=== PATIENT | female | born 1950 | race Caucasian/White ===

== ENCOUNTER → 2019-10-24 08:48 | Outpatient (CLI) | payer MEDICARE, SELFPAY ==
[2019-10-24 10:17] LABS: Absolute Lymphocyte Count 2.72 X10^3/uL (0.83-4.51); Absolute Neutrophil Count 4.9 X10^3/uL (2.0-7.7); Basophil# 0.03 X10^3/uL; Basophil% 0.4 % (0-1); Eosinophil# 0.08 X10^3/uL; Hematocrit 36.8 % (37-47); Hemoglobin 11.7 g/dL (12.0-15.0); Lymphocyte # 2.72 X10^3/ul (4.0); Lymphocyte % 32.9 % (19-41); Mean Corp Hgb Conc 31.8 g/dL (32-36); Mean Corpuscular Hgb 29.8 pg (27.0-32.0); Mean Corpuscular Volume 93.9 fL (81-99); Monocyte# 0.53 X10^3/uL; Monocyte% 6.4 % (0-10); NRBC Flagged by Analyzer 0 % (0-5); Neutrophil # 4.87 X10^3/uL (2.7-7.7); Neutrophil % 58.9 % (47-70); Platelet Count 233 K/mm3 (150-450); RBC Distribution Width CV 13.9 % (11.6-14.6); RBC Distribution Width SD 47.1 fl (35.1-43.9); Red Blood Count 3.92 M/mm3 (4.2-5.4); White Blood Count 8.3 K/mm3 (4.4-11.0)
[2019-10-24 10:28] LABS: ALB/GLOB Ratio 1.1 RATIO (0.9-2.4); AST(SGOT) 23 U/L (15-37); Alanine Aminotransfer ALT/SGPT 28 U/L (13-56); Albumin, Serum 3.9 g/dL (3.2-5.0); Alkaline Phosphatase 75 U/L (45-117); Anion Gap 2 (5-15); BUN 21 mg/dL (7-18); BUN/Creat Ratio 27.2 RATIO (10-20); Chloride 105 mmol/L (98-107); Cholesterol 170 mg/dL (200); Creatinine, Serum 0.77 mg/dL (0.55-1.02); EST Glomerular Filtration Rate 79 mL/min (>60); Est Glom Filt Rate - Afr Amer 95 mL/min (>60); Ferritin 534 ng/mL (8-252); Globulin 3.5 g/dL (2.2-4.2); Glucose 122 mg/dL (74-106); High Density Lipoprotein 58 mg/dL; Iron 135 ug/dL (50-170); Iron Binding Capacity,Total 333 ug/dL (250-450); PERCENT IRON SATURATION 40.5 % (15.0-55.0); Potassium 3.9 mmol/L (3.5-5.1); Protein, Total 7.4 g/dL (6.4-8.2); Sodium Level 138 mmol/L (136-145); Triglycerides 238 mg/dL; Very Low Density Lipoprotein 48 mg/dL (5-40)
[2019-10-24 10:32] LABS: Hemoglobin A1c 6.5 % (3.8-5.6)
== END ==
PROVIDERS: PCP Nurse Practitioner Family; Referring Provider Nurse Practitioner Family; Visit Provider Nurse Practitioner Family
DX: E80.4 Gilbert syndrome (principal); D50.9 Iron deficiency anemia, unspecified; E11.9 Type 2 diabetes mellitus without complications; I10 Essential (primary) hypertension; E78.5 Hyperlipidemia, unspecified
CPT/HCPCS: 36415; 80053; 80061; 82728; 83036; 83540; 83550; 85025

== ENCOUNTER → 2020-05-15 09:23 | Outpatient (CLI) | payer MEDICARE, SELFPAY ==
[2020-05-15 12:17] LABS: Hematocrit 36.9 % (37-47); Hemoglobin 11.7 g/dL (12.0-15.0)
[2020-05-15 12:29] LABS: Vitamin D,25 Hydroxy 68.1 ng/mL
[2020-05-15 12:39] LABS: Hemoglobin A1c 6.6 % (3.8-5.6)
[2020-05-15 13:01] LABS: ALB/GLOB Ratio 1.1 RATIO (0.9-2.4); AST(SGOT) 22 U/L (15-37); Alanine Aminotransfer ALT/SGPT 28 U/L (13-56); Albumin, Serum 3.9 g/dL (3.2-5.0); Alkaline Phosphatase 74 U/L (45-117); Anion Gap 3 (5-15); BUN 20 mg/dL (7-18); BUN/Creat Ratio 24.6 RATIO (10-20); Calcium,Total 9.3 mg/dL (8.5-10.1); Chloride 105 mmol/L (98-107); Cholesterol 173 mg/dL (200); Creatinine, Serum 0.81 mg/dL (0.55-1.02); EST Glomerular Filtration Rate 74 mL/min (>60); Est Glom Filt Rate - Afr Amer 89 mL/min (>60); Ferritin 525 ng/mL (8-252); Globulin 3.4 g/dL (2.2-4.2); Glucose 117 mg/dL (74-106); High Density Lipoprotein 68 mg/dL; Protein, Total 7.3 g/dL (6.4-8.2); Sodium Level 139 mmol/L (136-145); Triglycerides 170 mg/dL; Very Low Density Lipoprotein 34 mg/dL (5-40)
== END ==
DX: E11.9 Type 2 diabetes mellitus without complications (principal); E55.9 Vitamin D deficiency, unspecified; I10 Essential (primary) hypertension; D50.9 Iron deficiency anemia, unspecified; E78.5 Hyperlipidemia, unspecified
CPT/HCPCS: 36415; 80053; 80061; 82306; 82728; 83036; 85014; 85018

== ENCOUNTER → 2020-06-12 09:26 | Outpatient (CLI) | payer MEDICARE, SELFPAY ==
[2020-06-12 18:40] LABS: Microalbumin,Random Urine 14.5 mg/L (NO RANGE EST.); Microalbumin:Creatinine Ratio 12.3 mg/g CRE (<30 mg/g CRE)
== END ==
PROVIDERS: Referring Provider Nurse Practitioner Adult Health; Visit Provider Nurse Practitioner Adult Health
DX: E11.9 Type 2 diabetes mellitus without complications (principal)
CPT/HCPCS: 82043; 82570

== ENCOUNTER 2021-03-11 09:12 | Outpatient (CLI) | payer MEDICARE, SELFPAY ==
[2021-03-11 10:36] LABS: Absolute Lymphocyte Count 2.93 X10^3/uL (0.83-4.51); Absolute Neutrophil Count 5.2 X10^3/uL (2.0-7.7); Basophil# 0.03 X10^3/uL; Basophil% 0.3 % (0-1); Eosinophil# 0.09 X10^3/uL; Hematocrit 35.7 % (37-47); Hemoglobin 11.4 g/dL (12.0-15.0); Lymphocyte # 2.93 X10^3/ul (0.83-4.51); Lymphocyte % 33.1 % (19-41); Mean Corp Hgb Conc 31.9 g/dL (32-36); Mean Corpuscular Hgb 29.6 pg (27.0-32.0); Mean Corpuscular Volume 92.7 fL (81-99); Mean Platelet Vol. 9.9 fl (6.2-12.0); Monocyte# 0.58 X10^3/uL; Monocyte% 6.5 % (0-10); NRBC Flagged by Analyzer 0 % (0-5); Neutrophil # 5.19 X10^3/uL (2.7-7.7); Neutrophil % 58.6 % (47-70); Platelet Count 232 K/mm3 (150-450); RBC Distribution Width CV 13.5 % (11.6-14.6); RBC Distribution Width SD 45.7 fl (35.1-43.9); Red Blood Count 3.85 M/mm3 (4.2-5.4); White Blood Count 8.9 K/mm3 (4.4-11.0)
[2021-03-11 11:06] LABS: ALB/GLOB Ratio 1.1 RATIO (0.9-2.4); AST(SGOT) 19 U/L (15-37); Alanine Aminotransfer ALT/SGPT 22 U/L (13-56); Albumin, Serum 3.7 g/dL (3.2-5.0); Alkaline Phosphatase 69 U/L (45-117); Anion Gap 7 (5-15); BUN 23 mg/dL (7-18); BUN/Creat Ratio 27.3 RATIO (10-20); Calcium,Total 9.1 mg/dL (8.5-10.1); Chloride 103 mmol/L (98-107); Cholesterol 158 mg/dL (200); Creatinine, Serum 0.84 mg/dL (0.55-1.02); EST Glomerular Filtration Rate 71 mL/min (>60); Est Glom Filt Rate - Afr Amer 85 mL/min (>60); Globulin 3.4 g/dL (2.2-4.2); Glucose 116 mg/dL (74-106); High Density Lipoprotein 56 mg/dL; Potassium 4.1 mmol/L (3.5-5.1); Protein, Total 7.1 g/dL (6.4-8.2); Sodium Level 139 mmol/L (136-145); Thyroid Stim Hormone (TSH) 0.96 uIU/mL (0.358-3.74); Triglycerides 204 mg/dL; Very Low Density Lipoprotein 41 mg/dL (5-40)
== END 2021-03-11 23:59 | disposition short-term general hospital (02) ==
LOC: MTLAB 09:14
PROVIDERS: Referring Provider Nurse Practitioner Adult Health; Visit Provider Nurse Practitioner Adult Health
DX: E11.9 Type 2 diabetes mellitus without complications (principal)
CPT/HCPCS: 36415; 80053; 80061; 84443; 85025

== ENCOUNTER → 2021-10-22 | Outpatient (CLI) | payer MEDICARE, SELFPAY ==
[2021-10-22 15:23] LABS: Vitamin B12 892 pg/mL (211-911)
[2021-10-22 16:22] LABS: Iron 99 ug/dL (50-170); Iron Binding Capacity,Total 313 ug/dL (250-450); PERCENT IRON SATURATION 31.6 % (15.0-55.0)
== END | disposition home or self-care (01) ==
LOC: MTLAB 13:20
PROVIDERS: Referring Provider Nurse Practitioner Adult Health; Visit Provider Nurse Practitioner Adult Health
DX: D50.9 Iron deficiency anemia, unspecified (principal)
CPT/HCPCS: 36415; 82607; 82746; 83540; 83550

== ENCOUNTER → 2022-11-25 | Outpatient (CLI) | payer MEDICARE, SELFPAY ==
[2022-11-25 12:23] LABS: Hematocrit 36.6 % (37-47); Hemoglobin 11.3 g/dL (12.0-15.0); Mean Corp Hgb Conc 30.9 g/dL (32-36); Mean Corpuscular Hgb 28.6 pg (27.0-32.0); Mean Corpuscular Volume 92.7 fL (81-99); Mean Platelet Vol. 10.2 fl (6.2-12.0); Platelet Count 283 K/mm3 (150-450); RBC Distribution Width CV 13.9 % (11.6-14.6); Red Blood Count 3.95 M/mm3 (4.2-5.4); White Blood Count 11.4 K/mm3 (4.4-11.0)
[2022-11-25 13:16] LABS: ALB/GLOB Ratio 1.1 RATIO (0.9-2.4); AST(SGOT) 16 U/L (15-37); Alanine Aminotransfer ALT/SGPT 25 U/L (13-56); Albumin, Serum 3.7 g/dL (3.2-5.0); Alkaline Phosphatase 82 U/L (45-117); Anion Gap 7 (5-15); BUN 23 mg/dL (7-18); BUN/Creat Ratio 27.4 RATIO (10-20); Calcium,Total 9.1 mg/dL (8.5-10.1); Chloride 105 mmol/L (98-107); Cholesterol 157 mg/dL (200); Creatinine, Serum 0.84 mg/dL (0.55-1.02); EST Glomerular Filtration Rate 71 mL/min (>60); Est Glom Filt Rate - Afr Amer 86 mL/min (>60); Globulin 3.5 g/dL (2.2-4.2); Glucose 119 mg/dL (74-106); High Density Lipoprotein 57 mg/dL; Potassium 3.9 mmol/L (3.5-5.1); Protein, Total 7.2 g/dL (6.4-8.2); Sodium Level 139 mmol/L (136-145); Thyroid Stim Hormone (TSH) 1.27 uIU/mL (0.358-3.74); Triglycerides 211 mg/dL; Very Low Density Lipoprotein 42 mg/dL (5-40)
[2022-11-25 15:39] LABS: Microalbumin,Random Urine 7.6 mg/L (NO RANGE EST.)
[2022-11-25 19:49] LABS: Hemoglobin A1c 6.8 % (3.8-5.6)
== END | disposition home or self-care (01) ==
LOC: MTLAB 10:20
PROVIDERS: Referring Provider Nurse Practitioner Family; Visit Provider Nurse Practitioner Family
DX: E11.9 Type 2 diabetes mellitus without complications (principal); E78.5 Hyperlipidemia, unspecified; I10 Essential (primary) hypertension
CPT/HCPCS: 36415; 80053; 80061; 82043; 83036; 84443; 85027

== ENCOUNTER → 2023-10-27 | Outpatient (CLI) | payer MEDICARE, SELFPAY ==
--- NOTE | 2023-10-27 13:11 | BD_ITS ---
STUDY: DUAL ENERGY X-RAY ABSORPTIOMETRY / DXA REASON FOR EXAM: Female, 73 years old. M810 TECHNIQUE: Bone Mineral Density (BMD) measurements of lumbar spine and bilateral hips were obtained. COMPARISON: None. FINDINGS: Lumbar Spine (L1-L4): g/cm2 (1.136) / T-score (1.1) / Z-score (3.4) Findings are suggestive of normal bone density with a fracture risk. Left Femur Total: g/cm2 (0.868) / T-score (-0.6) / Z-score (1.1) Left Femoral Neck: g/cm2 (0.721) / T-score (-1.2) / Z-score (0.9) Right Femur Total: g/cm2 (0.858) / T-score (-0.7) / Z-score (1.0) Right Femoral Neck: g/cm2 (0.704) / T-score (-1.3) / Z-score (0.7) BD/Dexa Bone Density Study IMPRESSION: The patient is considered osteopenic as outlined below according to World Ruddy Organization (WHO) criteria with a low fracture risk. Reference Information: The T-score is the number of standard deviations above or below the standard which is normal for young adults at their peak bone mineral density. The World Health Organization (WHO) interprets the T-scores as follows: Above -1 Normal bone density Between -1 and -2.5 Osteopenia Equal to / or below -2.5 Osteoporosis As a practical clinical guideline, osteopenia may be graded as follows: Mild -1 through -1.5 Moderate -1.6 through -2.0 Severe -2.1 through -2.4 The Z-score is the number of standard deviations above or below age-matched controls. A Z-score of less than -1.5 would be considered abnormal. References: 1. NIH Osteoporosis and Related Bone Diseases www osteo.org 2. International Society for Clinical Densitometry www iscd.org 3. National Osteoporosis Foundation www nof.org Electronically Signed: Wilmer Desai MD at 11:08 EDT ,
== END | disposition home or self-care (01) ==
LOC: OPBD 13:09
PROVIDERS: Referring Provider Nurse Practitioner Family; Visit Provider Nurse Practitioner Family
DX: M81.8 Other osteoporosis without current pathological fracture (principal)
CPT/HCPCS: 77080

== ENCOUNTER → 2023-12-08 | Outpatient (CLI) | payer MEDICARE, SELFPAY ==
--- OUTSIDE RECORDS SUMMARY | 2023-12-08 10:46 | XMS RPT_ITS | CCD ---
Author Organization [facility] Care Team Providers Care Remediation Project Engineer Name Role Phone NEAD NAVARRETE Unavailable Unavailable NICOLASA HERNANDEZ Unavailable Unavailable Results Test Name Value Interpretation Reference Range [facility] CNOV[facility] Visit (SP) Office (HEMAWS) ----RAMONE LITTLE ([id number]) 1950 FDate Time Provider Apzzzerxkq20/20/17 1:30 PM NEDA NAVARRETE HEMCRISTAL During your visit today, we recorded the following information about you: Temperature Blood pressure Weight Height 98.5 degrees 172/79 112 kg 1.57 Danielle Bui LPN, LPN 11/26/2016 2:03 PM SignedNew patient, discuss abnormal blood resultsStalin Yates DO 11/26/2016 2:30 PM SignedConsult requested by Nicolasa Hernandez CNP for my opinion and recommendationsregarding a patient with possible diagnosis hemochromatosis. The impression andplan will be communicated by sending this full consult note to Nicolasa Reyes CNPunder separate cover letter.HPI: The patient is a 66 yo female who had a PMH significant for DM (only onmetformin; dx ~7 yrs ago; no known complications), HTN, Gilbert's disease andhypercholesterolemia who is referred for evaluation of hemochromatosis.Patient had been diagnosed with VINICIUS and has been on oral iron supplement thatwas stopped about a month ago.Outside lab work includes a CBC from June of this year. The hemoglobin level was11.4 g/dL with hematocrit of 37.4%. White count and differential normal.Platelet count 217,000. In September for repeat CBC showed a hemoglobin of 11.2g/dL with hematocrit 36.7%. White count 6700 with a normal differential andplatelet count 252,000. Patient was noted to have a TIBC of 424. Ironsaturation was 28% and the iron serum level was 117 mcg/dL. Ferritin was 600.8ng per mL.She feels well and has no complaints.PMH, medications and allergies personally reviewed by me today. Any changesdocumented in appropriate section.ROS:Constitutional: Denies episodes of fever and night sweats. Not significantlyfatigued. Normal appetite.Neuro: Denies LOZANO, vertigo, dizziness and imbalance. Denies symptoms ofneuropathy.HEENT: No recent change in voice, vision or hearing.Resp: Denies cough, wheeze and hemoptysis. Denies shortness of breath at rest.Denies HEATON.CVS: Denies exertional chest pain, PND, orthopnea. Occasional left ankleswelling due to remote tendon injury.GI: Denies dysgeusia. Denies symptoms of stomatitis. Denies dysphagia andodynophagia. Denies reflux, n/v, change in bowel habits and abdominal pain.: Denies dysuria or gross hematuria. No symptoms of bladder outletobstruction.Endo: Denies hot flashes. Denies polyuria and polydipsia. Denies heat and coldintolerance.Musculoskele clarence: Denies bone, back, and muscular pain. Has chronic left kneepain and is in need of knee replacement. Occasional pain in right 3rd finger.Derm: Denies rash. Denies jaundice and diffuse pruritis.Heme: Denies unusual bleeding and unexplained bruising.Psych: Normal mood.PHYSICAL EXAM:Vitals: Blood pressure 172/79, temperature 36.9 ?C (98.5 ?F), height 157 cm (5'1.81ANDquot;), weight 112 kg (247 lb).Well-appearing and in no acute distress.EYES: Sclerae are anicteric bilaterally.ENT: Oral mucosa is unremarkable. There is no sign of thrush or mucositis.NECK: Supple. No enlargement of thyroid.LYMPHATIC: There is no palpable cervical, supraclavicular, axillary or inguinaladenopathy.RESPIRATO RY: Inspiratory breath sounds are of normal intensity in all dyer.No rales, wheezes or rhonchi.CARDIOVASCULAR: Rhythm is regular. Normal intensity S1/S2. There is no gallopor murmur.ABDOMEN: The abdomen is nondistended. No organomegaly. No tenderness.Extremities: No swelling or edema currently.SKIN: No jaundice or rash. 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 No focal motor weakness.MUSCULOSKELETAL: No muscle wasting.ASSESSMENT/PLAN:(D50 .8) Other iron deficiency anemia (primary encounter diagnosis)Assessment:-Mild elevation of ferritin and TIBC. The pattern of iron indexes suggestunderlying iron deficiency and most likely an elevated ferritin due to acutephase response.-I reviewed this with her and asked her to remain off iron supplementation fornow. She'll undergo repeat iron testing. If ferritin still significantlyelevated, then she'll have gene testing for hemachromatosis. If that's negativethen I would recommend further workup for possible underlying fatty liverdisease or other inflammatory condition.-She has not yet had a screening colonoscopy and requires 1. She is in theprocess of working with her insurance plan to get that procedure covered.Plan:-Written orders provided for her to have iron studies done at the [facility].[place] Provider: NICOLASA HERNANDEZ [[id number]]Allergies As of Date: 11/26/2016 Noted Allergy ReactionPENICILLINS 11/26/2016 4 - HivesDate Reviewed: Never ReviewedReason for Visit: New Patient [172]Primary Visit Diagnosis:Other iron deficiency anemia [D50.8]Order(s):IRON + TIBC [SQIRON] Order #: [id number] FUTURE FERRITIN BLD [SQFERR] Order #: [id number] FUTUREFollow-up and Disposition History RecordedPrescriptions as of 11/26/2016 Sig: ASPIRIN 81 MG TABLET,DELAYED * Take 81 mg by mouth once janett* OMEGA-3 FATTY ACIDS-FISH OIL * Take 1 capsule by mouth daily* MULTIPLE VITAMIN ORAL Take 1 capsule by mouth once * FERROUS SULFATE 325 MG (65 MG* Take 325 mg by mouth daily wi* BENAZEPRIL 40 MG TABLET 1 tablet once daily. HYDROCHLOROTHIAZIDE 25 MG TAB* 1 tablet once daily. METOPROLOL TARTRATE 25 MG TAB* 1 tablet once daily. PRAVASTATIN 10 MG TABLET 1 tablet once daily. ACCU-CHEK ELLIOT PLUS TEST STR* 1 capsule once daily. METFORMIN 500 MG TABLET 1 tablet once daily. VITAMIN D2 50,000 UNIT CAPSULE 1 capsule once daily.Problem List As Of Date: 11/26/2016(None)Visit Notes:>> Jana Hester (Oil Spraying Machine Operator) BRENDA Bui TueNov 26, 2016 1:48 PM Status:SignedNew patient, discuss abnormal blood resultsPadomingo Kaciekym Bui LPNEncounter Status:Closed by NEDA NAVARRETE DO on 11/26/16 [facility] PROGRESSon 11-26-2016 PROGRESS HNO ID: [id number] thor: Neda Mc: (none)Author Type: PhysicianType: Progress NotesFiled: 11/26/2016 2:30 PMNote Text:Consult requested by Nicolasa Hernandez CNP for my opinion and recommendationsregarding a patient with possible diagnosis hemochromatosis. Theimpression and plan will be communicated by sending this full consult noteto Nicolasa Reyes CNP under separate cover letter.HPI: The patient is a 66 yo female who had a PMH significant for DM (onlyon metformin; dx ~7 yrs ago; no known complications), HTN, Gilbert'sdisease and hypercholesterolemia who is referred for evaluation ofhemochromatosis.Patient had been diagnosed with VINICIUS and has been on oral iron supplementthat was stopped about a month ago.Outside lab work includes a CBC from June of this year. The hemoglobinlevel was 11.4 g/dL with hematocrit of 37.4%. White count and differentialnormal. Platelet count 217,000. In September for repeat CBC showed ahemoglobin of 11.2 g/dL with hematocrit 36.7%. White count 6700 with anormal differential and platelet count 252,000. Patient was noted to havea TIBC of 424. Iron saturation was 28% and the iron serum level was 117mcg/dL. Ferritin was 600.8 ng per mL.She feels well and has no complaints.PMH, medications and allergies personally reviewed by me today. Anychanges documented in appropriate section.ROS:Constitutional: Denies episodes of fever and night sweats. Notsignificantly fatigued. Normal appetite.Neuro: Denies LOZANO, vertigo, dizziness and imbalance. Denies symptoms ofneuropathy.HEENT: No recent change in voice, vision or hearing.Resp: Denies cough, wheeze and hemoptysis. Denies shortness of breath atrest. Denies HEATON.CVS: Denies exertional chest pain, PND, orthopnea. Occasional left ankleswelling due to remote tendon injury.GI: Denies dysgeusia. Denies symptoms of stomatitis. Denies dysphagia andodynophagia. Denies reflux, n/v, change in bowel habits and abdominalpain.: Denies dysuria or gross hematuria. No symptoms of bladder outletobstruction.Endo: Denies hot flashes. Denies polyuria and polydipsia. Denies heat andcold intolerance.Musculoskeletal: Denies bone, back, and muscular pain. Has chronic leftknee pain and is in need of knee replacement. Occasional pain in right 3rdfinger.Derm: Denies rash. Denies jaundice and diffuse pruritis.Heme: Denies unusual bleeding and unexplained bruising.Psych: Normal mood.PHYSICAL EXAM:Vitals: Blood pressure 172/79, temperature 36.9 ?C (98.5 ?F), height 157cm (5' 1.81 ), weight 112 kg (247 lb).Well-appearing and in no acute distress.EYES: Sclerae are anicteric bilaterally.ENT: Oral mucosa is unremarkable. There is no sign of thrush or mucositis.NECK: Supple. No enlargement of thyroid.LYMPHATIC: There is no palpable cervical, supraclavicular, axillary oringuinal adenopathy.RESPIRATORY: Inspiratory breath sounds are of normal intensity in allfields. No rales, wheezes or rhonchi.CARDIOVASCULAR: Rhythm is regular. Normal intensity S1/S2. There is nogallop or murmur.ABDOMEN: The abdomen is nondistended. No organomegaly. No tenderness.Extremities: No swelling or edema currently.SKIN: No jaundice or rash. 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 No focal motor weakness.MUSCULOSKELETAL: No muscle wasting.ASSESSMENT/PLAN:(D50 .8) Other iron deficiency anemia (primary encounter diagnosis)Assessment:-Mild elevation of ferritin and TIBC. The pattern of iron indexes suggestunderlying iron deficiency and most likely an elevated ferritin due toacute phase response.-I reviewed this with her and asked her to remain off iron supplementationfor now. She'll undergo repeat iron testing. If ferritin stillsignificantly elevated, then she'll have gene testing for hemachromatosis.If that's negative then I would recommend further workup for possibleunderlying fatty liver disease or other inflammatory condition.-She has not yet had a screening colonoscopy and requires 1. She is in theprocess of working with her insurance plan to get that procedure covered.Plan:-Written orders provided for her to [facility].Neda Navarrete, DO [facility] Encounters Encounter Date Encounter Type Care Provider Facility Start: 11-26-2016 End: 11-29-2016 Ambulatory NEDA NAVARRETE [facility] Summary Purpose Family History No Family History Records Found Advance Directives No Advanced Directives Records Found Additional Source Comments INFORMATION SOURCE (unrecogn ized section and content) DATE CREATED AUTHOR 08/02/2017 [facility] FOR RECORDS PERTAINING TO PATIENTS WHO ARE OR HAVE BEEN ENROLLED IN A CHEMICAL DEPENDENCY/SUBSTANCEABUSE PROGRAM, SOME INFORMATION MAY BE OMITTED. This clinical summary was aggregated from multiple sources. Caution should be exercised in using it in the provision of clinical care. This summary normalizes information from multiple sources, and as a consequence, information in this document may materially change the coding, format and clinical context of patient data. In addition, data may be omitted in some cases. CLINICAL DECISIONS SHOULD BE BASED ON THE PRIMARY CLINICAL RECORDS. [employer] provides no warranty or guarantee of the accuracy or completeness of information in this document.
[2023-12-08 12:30] LABS: ALB/GLOB Ratio 1.2 RATIO (0.9-2.4); AST(SGOT) 19 U/L (15-37); Alanine Aminotransfer ALT/SGPT 22 U/L (13-56); Albumin, Serum 4.1 g/dL (3.2-5.0); Alkaline Phosphatase 76 U/L (45-117); Anion Gap 6 (5-15); BUN 34 mg/dL (7-18); BUN/Creat Ratio 23.4 RATIO (10-20); Calcium,Total 9.5 mg/dL (8.5-10.1); Chloride 103 mmol/L (98-107); Cholesterol 173 mg/dL (200); Creatinine, Serum 1.45 mg/dL (0.55-1.02); EST Glomerular Filtration Rate 38 mL/min (>60); Est Glom Filt Rate - Afr Amer 45 mL/min (>60); Globulin 3.3 g/dL (2.2-4.2); Glucose 125 mg/dL (74-106); High Density Lipoprotein 62 mg/dL; Potassium 4.1 mmol/L (3.5-5.1); Protein, Total 7.4 g/dL (6.4-8.2); Sodium Level 137 mmol/L (136-145); Triglycerides 233 mg/dL; Very Low Density Lipoprotein 47 mg/dL (5-40)
[2023-12-08 12:31] LABS: Absolute Lymphocyte Count 4.38 X10^3/uL (0.83-4.51); Absolute Neutrophil Count 5.8 X10^3/uL (2.0-7.7); Basophil# 0.05 X10^3/uL; Basophil% 0.4 % (0-1); Eosinophil# 0.14 X10^3/uL; Eosinophils% 1.2 % (0-5); Hematocrit 35.2 % (37-47); Hemoglobin 11.6 g/dL (12.0-15.0); Lymphocyte # 4.38 X10^3/ul (0.83-4.51); Lymphocyte % 38.6 % (19-41); Mean Corpuscular Hgb 30.2 pg (27.0-32.0); Mean Corpuscular Volume 91.7 fL (81-99); Mean Platelet Vol. 10.5 fl (6.2-12.0); Monocyte# 0.97 X10^3/uL; Monocyte% 8.5 % (0-10); NRBC Flagged by Analyzer 0 % (0-5); Neutrophil # 5.75 X10^3/uL (2.7-7.7); Neutrophil % 50.7 % (47-70); Platelet Count 274 K/mm3 (150-450); RBC Distribution Width CV 14.1 % (11.6-14.6); RBC Distribution Width SD 47.4 fl (35.1-43.9); Red Blood Count 3.84 M/mm3 (4.2-5.4); White Blood Count 11.4 K/mm3 (4.4-11.0)
[2023-12-08 15:52] LABS: Microalbumin,Random Urine 16.4 mg/L (NO RANGE EST.)
[2023-12-12 11:08] LABS: Vitamin D 1,25-Dihydroxy 44.6 pg/mL (24.8-81.5)
== END | disposition home or self-care (01) ==
PROVIDERS: PCP Nurse Practitioner Family; Referring Provider Nurse Practitioner Family; Visit Provider Nurse Practitioner Family
DX: I10 Essential (primary) hypertension (principal); E11.9 Type 2 diabetes mellitus without complications; E55.9 Vitamin D deficiency, unspecified; E78.5 Hyperlipidemia, unspecified
CPT/HCPCS: 36415; 80053; 80061; 82043; 82652; 84443; 85025

== ENCOUNTER → 2024-01-26 | Outpatient (CLI) | payer MEDICARE, SELFPAY ==
[2024-01-26 16:56] LABS: Anion Gap 5 (5-15); BUN 31 mg/dL (7-18); BUN/Creat Ratio 30.4 RATIO (10-20); Calcium,Total 9.1 mg/dL (8.5-10.1); Chloride 102 mmol/L (98-107); Creatinine, Serum 1.02 mg/dL (0.55-1.02); EST Glomerular Filtration Rate 56 mL/min (>60); Est Glom Filt Rate - Afr Amer 68 mL/min (>60); Glucose 102 mg/dL (74-106); Potassium 3.6 mmol/L (3.5-5.1); Sodium Level 137 mmol/L (136-145); Vitamin D,25 Hydroxy 79.4 ng/mL
== END | disposition home or self-care (01) ==
LOC: VSLAB 14:54
PROVIDERS: PCP Nurse Practitioner Family; Visit Provider Nurse Practitioner Family
DX: E55.9 Vitamin D deficiency, unspecified (principal); R79.89 Other specified abnormal findings of blood chemistry
CPT/HCPCS: 36415; 80048; 82306

== ENCOUNTER → 2024-07-10 | Outpatient (CLI) | payer MEDICARE, SELFPAY ==
[2024-07-10 16:52] LABS: Absolute Lymphocyte Count 2.47 X10^3/uL (0.83-4.51); Absolute Neutrophil Count 6.8 X10^3/uL (2.0-7.7); Basophil# 0.04 X10^3/uL; Basophil% 0.4 % (0-1); Eosinophil# 0.08 X10^3/uL; Eosinophils% 0.8 % (0-5); Hematocrit 36.3 % (37-47); Hemoglobin 11.7 g/dL (12.0-15.0); Lymphocyte # 2.47 X10^3/ul (0.83-4.51); Lymphocyte % 24.6 % (19-41); Mean Corp Hgb Conc 32.2 g/dL (32-36); Mean Corpuscular Hgb 29.4 pg (27.0-32.0); Mean Corpuscular Volume 91.2 fL (81-99); Mean Platelet Vol. 10.2 fl (6.2-12.0); Monocyte# 0.67 X10^3/uL; Monocyte% 6.7 % (0-10); NRBC Flagged by Analyzer 0 % (0-5); Neutrophil # 6.76 X10^3/uL (2.7-7.7); Neutrophil % 67.1 % (47-70); Platelet Count 262 K/mm3 (150-450); RBC Distribution Width CV 14.2 % (11.6-14.6); RBC Distribution Width SD 47.4 fl (35.1-43.9); Red Blood Count 3.98 M/mm3 (4.2-5.4); White Blood Count 10.1 K/mm3 (4.4-11.0)
[2024-07-10 17:24] LABS: ALB/GLOB Ratio 1.5 RATIO (0.9-2.4); AST(SGOT) 21 U/L (<=31); Alanine Aminotransfer ALT/SGPT 13 U/L (<=34); Albumin, Serum 4.4 g/dL (3.4-4.8); Alkaline Phosphatase 74 U/L (35-104); Anion Gap 14 (5-15); BUN 28 mg/dL (4-19); Calcium,Total 9.9 mg/dL (7.6-11.0); Carbon Dioxide 24.3 mmol/L (21.0-32.0); Chloride 100 mmol/L (98-108); Cholesterol 174 mg/dL (<=200); Creatinine, Serum 1.05 mg/dL (0.70-1.20); EST Glomerular Filtration Rate 56 (>60); Globulin 2.9 g/dL (2.2-4.2); Glucose 135 mg/dL (70-99); High Density Lipoprotein 60 mg/dL; Low Density Lipoprotein Calc. 68 mg/dL; Potassium 4.4 mmol/L (3.3-5.1); Protein, Total 7.4 g/dL (5.9-8.4); Sodium Level 139 mmol/L (133-145); Thyroid Stim Hormone (TSH) 0.709 uIU/mL (0.300-4.200); Total Bilirubin 2.23 mg/dL (0.00-1.30); Triglycerides 230 mg/dL; Very Low Density Lipoprotein 46 mg/dL (5-40); Vitamin D,25 Hydroxy 78.8 ng/mL (30-100); cholesterol:hdl ratio screen 2.89
== END | disposition home or self-care (01) ==
PROVIDERS: PCP Nurse Practitioner Family; Visit Provider Nurse Practitioner Family
DX: I10 Essential (primary) hypertension (principal); E11.9 Type 2 diabetes mellitus without complications; E55.9 Vitamin D deficiency, unspecified; E78.5 Hyperlipidemia, unspecified
CPT/HCPCS: 36415; 80053; 80061; 82306; 84443; 85025

== ENCOUNTER → 2024-07-19 | Outpatient (CLI) | payer MEDICARE, SELFPAY ==
[2024-07-19 16:25] LABS: Microalbumin,Random Urine < 12.0 mg/L (NO RANGE EST.)
== END | disposition home or self-care (01) ==
LOC: LABSPEC 13:34
PROVIDERS: PCP Nurse Practitioner Family; Referring Provider Nurse Practitioner Family; Visit Provider Nurse Practitioner Family
DX: I10 Essential (primary) hypertension (principal); E11.9 Type 2 diabetes mellitus without complications; E55.9 Vitamin D deficiency, unspecified; E78.5 Hyperlipidemia, unspecified
CPT/HCPCS: 82043